=== PATIENT | female | born 1970 | race Caucasian/White ===

== ENCOUNTER 2021-01-20 12:19 | Emergency (ER) | payer OTHER ==
[~2021-01-20] VITALS: Ht 160 cm; Wt 70.3 kg
[~2021-01-20 12:19] MED LIST: ANTIVERT25 M1 PO; AVAPRO150 MG; KETO10TA2 PO; NABUMETONE500 MG PO; PROTONIX20 MG PO; TIGAN300 MG PO
== END 2021-01-20 16:01 | disposition home or self-care (01) ==
LOC: ER 12:19
DX: J06.9 Acute upper respiratory infection, unspecified (principal)

== ENCOUNTER 2021-04-16 07:25 | Emergency (ER) | payer OTHER ==
[~2021-04-16] VITALS: Ht 160 cm; Wt 76.2 kg
[2021-04-16] MEDS ORDERED: NORFLEX100MG PO (11:32)
[2021-04-16] MEDS ORDERED: KETO10TA2 PO (11:32)
== END 2021-04-16 12:43 | disposition home or self-care (01) ==
LOC: ER 07:25
DX: M54.5 Low back pain (principal)

== ENCOUNTER 2022-02-11 20:49 | Emergency (ER) | payer OTHER ==
[~2022-02-11] VITALS: Ht 162.6 cm; Wt 81.6 kg
[~2022-02-11 20:49] MED LIST changes: +NORFLEX100MG PO
== END 2022-02-11 22:38 | disposition home or self-care (01) ==
LOC: ER 20:49
DX: R00.2 Palpitations (principal); I10 Essential (primary) hypertension